=== PATIENT | female | born 1955 | race Caucasian/White ===

== ENCOUNTER 2017-09-14 08:58 | Emergency (ER) | payer MEDICAID ==
[~2017-09-14] VITALS: Ht 165.1 cm; Wt 70.0 kg
[2017-09-14 09:06] VITALS: BP 145/85
[2017-09-14] MEDS ORDERED: LIDOcaine 1% 30ml preserv. free vial IJ ONE (09:50)
[2017-09-14] MEDS ORDERED: TETanus/Pertussis (Acell)/Diphther VAC/PF (Tdap-Adult) 0.5ml syringe IM ONE (09:50)
[2017-09-14] MEDS ORDERED: SULF1TAB49 PO (09:58)
[2017-09-14] MEDS ORDERED: ACET-812 PO (10:54)
== END 2017-09-14 10:50 | disposition home or self-care (01) ==
LOC: ER 08:59
DX: L02.212 Cutaneous abscess of back [any part, except buttock and flank] (principal); J45.909 Unspecified asthma, uncomplicated; G43.909 Migraine, unspecified, not intractable, without status migrainosus; F12.10 Cannabis abuse, uncomplicated; Z59.0 Homelessness; Z56.0 Unemployment, unspecified; Z88.0 Allergy status to penicillin; Z88.6 Allergy status to analgesic agent; Z88.8 Allergy status to other drugs, medicaments and biological substances; Z79.899 Other long term (current) drug therapy
CPT/HCPCS: 10060; 87070; 87077; 87186; 90471; 90715; 99284; A6449; J3490; 99283; A6446

== ENCOUNTER 2022-02-07 16:52 | Emergency (ER) | payer SELFPAY ==
[~2022-02-07] VITALS: Ht 162.6 cm; Wt 81.8 kg
[2022-02-07 18:54] VITALS: BP 172/94
[2022-02-07] MEDS ORDERED: diphenhydrAMINE 50 mg/ml inj IV ONE (20:00)
[2022-02-07] MEDS ORDERED: proCHLORperazine 10 MG/2 ml inj IV ONE (20:00)
[2022-02-07] MEDS ORDERED: normal saline 1000ml 1,000 ML IV ONE (20:00)
== END 2022-02-07 21:10 | disposition home or self-care (01) ==
LOC: ER 16:52
DX: G43.909 Migraine, unspecified, not intractable, without status migrainosus (principal); J45.909 Unspecified asthma, uncomplicated; F12.10 Cannabis abuse, uncomplicated; Z90.49 Acquired absence of other specified parts of digestive tract; Z88.0 Allergy status to penicillin; Z88.6 Allergy status to analgesic agent; Z88.8 Allergy status to other drugs, medicaments and biological substances
CPT/HCPCS: 96361; 96374; 96375; 99284; J0780; J1200; J7030

== ENCOUNTER 2023-11-03 15:06 | Emergency (ER) | payer OTHER ==
[2023-11-04] MEDS ORDERED: SULF1TAB49 PO (13:08)
== END 2023-11-03 18:22 | disposition left against medical advice (07) ==
LOC: ER 15:06
DX: M54.9 Dorsalgia, unspecified (principal); Z53.21 Procedure and treatment not carried out due to patient leaving prior to being seen by health care provider

== ENCOUNTER 2023-11-04 10:55 | Emergency (ER) | payer OTHER ==
[~2023-11-04] VITALS: Ht 165.1 cm; Wt 68.0 kg
[2023-11-04 11:07] VITALS: BP 182/97; PULSE 111; RESP 16; TEMP 97.2; O2SAT 100
[2023-11-04] MEDS: LIDOcaine 1% 30ml preserv. free vial IJ STA (12:10)
[2023-11-04] MEDS ORDERED: SULF1TAB49 PO (13:08)
== END 2023-11-04 13:20 | disposition home or self-care (01) ==
LOC: ER 10:56
DX: L72.3 Sebaceous cyst (principal); G43.909 Migraine, unspecified, not intractable, without status migrainosus; J45.909 Unspecified asthma, uncomplicated; Z56.0 Unemployment, unspecified; Z59.00 Homelessness unspecified; Z88.0 Allergy status to penicillin; Z79.899 Other long term (current) drug therapy
CPT/HCPCS: 10060; 99283; J3490

== ENCOUNTER 2023-11-07 13:43 | Emergency (ER) | payer OTHER ==
[~2023-11-07] VITALS: Ht 165.1 cm; Wt 66.8 kg
[~2023-11-07 13:43] MED LIST: SULF1TAB49 PO
[2023-11-07 13:54] VITALS: BP 145/88; PULSE 107; RESP 16; TEMP 98.1; O2SAT 96
== END 2023-11-07 15:01 | disposition home or self-care (01) ==
LOC: ER 13:43
DX: L72.3 Sebaceous cyst (principal); Z48.00 Encounter for change or removal of nonsurgical wound dressing; G43.909 Migraine, unspecified, not intractable, without status migrainosus; J45.909 Unspecified asthma, uncomplicated; F12.90 Cannabis use, unspecified, uncomplicated; Z56.0 Unemployment, unspecified; Z59.00 Homelessness unspecified; Z88.0 Allergy status to penicillin; Z79.899 Other long term (current) drug therapy
CPT/HCPCS: 99281; A6449